=== PATIENT | male | born 1955 | race Two or more races ===

== ENCOUNTER 2018-11-10 02:48 | Emergency (ER) | payer OTHER ==
[~2018-11-10] VITALS: Ht 175.3 cm; Wt 77.1 kg
[~2018-11-10 02:48] MED LIST: ATOR20TA PO; OMEP20CA11 PO
[2018-11-10] MEDS ORDERED: IV NS 0.9% 500 ML BAG IV ONE (03:00)
[2018-11-10] MEDS ORDERED: ONDANSETRON HCL/PF 4 MG/2 ML VIAL IVP ONE (03:00)
[2018-11-10] MEDS ORDERED: KETOROLAC TROMETHAMINE INJ 30 MG/ML VIAL IV ONE (03:00)
[2018-11-10] MEDS ORDERED: MORPHINE SULFATE INJ 2 MG/ML DISP.SYRIN IV ONE (03:00)
--- NOTE | 2018-11-10 03:00 | NUR ---
BIB S/O C/O ABD PAIN WITH NAUSEA/VOMITING, fever and chills SINCE 1500 YESTERDAY, SYNCOPE. S/P DENTAL SURGERY 11/09/18. CURRENTLY AFEBRILE
[2018-11-10] MEDS ORDERED: MORPHINE SULFATE INJ 2 MG/ML DISP.SYRIN ONE (03:03)
[2018-11-10] MEDS ORDERED: KETOROLAC TROMETHAMINE 15 MG/ML VIAL ONE (03:03)
[2018-11-10] MEDS ORDERED: ONDANSETRON HCL/PF 4 MG/2 ML VIAL ONE (03:03)
[2018-11-10 03:16] LABS: BASOPHILS # (AUTO) 0.1 /CMM (0.0-0.2); BASOPHILS % (AUTO) 0.6 % (0.0-2.0); EOSINOPHILS % (AUTO) 0.1 % (0.0-6.0); HEMATOCRIT 45 % (39-51); HEMOGLOBIN 15.2 g/dL (13.5-17.5); LYMPHOCYTES % (AUTO) 15.1 % (20.0-44.0); MEAN CORPUSCULAR HGB CONC 34 g/dl (31.0-36.0); MEAN CORPUSCULAR VOLUME 93 fL (80-96); MONOCYTES # (AUTO) 0.4 /CMM (0.1-1.30); NEUTROPHILS # (AUTO) 10.9 /CMM (1.8-8.9); NEUTROPHILS % (AUTO) 81.2 % (43.0-81.0); PLATELET COUNT (AUTO) 234 /CMM (150-450); RED BLOOD CELL COUNT(AUTO) 4.82 MIL/uL (4.5-6.0); WHITE BLOOD COUNT (AUTO) 13.4 K/uL (4.3-11.0)
[2018-11-10 03:23] LABS: CALCIUM, SERUM 8.9 mg/dL (8.5-10.1); CREATININE 1.1 mg/dL (0.6-1.3); POTASSIUM 3.3 mmol/L (3.5-5.1)
--- NOTE | 2018-11-10 05:17 | NUR ---
IV removed. Catheter intact and site benign. Pressure and 4x4 applied to site. No bleeding noted.Patient discharged to home in stable condition. Rx and Written and verbal after care instructions given. Patient verbalizes understanding of instruction. will provide the transportation.
[2018-11-10 05:18] VITALS: BP 138/88
== END 2018-11-10 05:18 | disposition home or self-care (01) ==
LOC: ER 02:48
DX: G89.18 Other acute postprocedural pain (principal); E78.00 Pure hypercholesterolemia, unspecified; R51 Headache; F12.90 Cannabis use, unspecified, uncomplicated; Z79.899 Other long term (current) drug therapy
CPT/HCPCS: 36415; 70450; 80048; 85025; 85730; 87040 ×2; 96374; 96375; 99284; J1885; J2270; J2405; J7040

== ENCOUNTER 2019-01-12 06:04 | Emergency (ER) | payer OTHER ==
[~2019-01-12] VITALS: Ht 175.3 cm; Wt 74.8 kg
[~2019-01-12 06:04] MED LIST changes: -OMEP20CA11 PO; +OMEP20CA15 PO
[2019-01-12] MEDS ORDERED: KETOROLAC TROMETHAMINE INJ 30 MG/ML VIAL IV ONE (06:30)
[2019-01-12] MEDS ORDERED: ONDANSETRON HCL/PF 4 MG/2 ML VIAL ONE (06:30)
[2019-01-12] MEDS ORDERED: ONDANSETRON HCL/PF 4 MG/2 ML VIAL IVP ONE (06:30)
[2019-01-12] MEDS ORDERED: IV NS 0.9% 1,000 ML BAG IV ONE (06:30)
[2019-01-12] MEDS ORDERED: KETOROLAC TROMETHAMINE 15 MG/ML VIAL ONE (06:30)
[2019-01-12 06:46] LABS: BASOPHILS % (AUTO) 0.2 % (0.0-2.0); HEMATOCRIT 43 % (39-51); HEMOGLOBIN 14.5 g/dL (13.5-17.5); LYMPHOCYTES # (AUTO) 0.5 /CMM (0.8-4.8); LYMPHOCYTES % (AUTO) 5.1 % (20.0-44.0); MEAN CORPUSCULAR HGB CONC 33 g/dl (31.0-36.0); MEAN CORPUSCULAR VOLUME 96 fL (80-96); MONOCYTES # (AUTO) 0.5 /CMM (0.1-1.30); MONOCYTES % (AUTO) 5.9 % (2.0-12.0); NEUTROPHILS # (AUTO) 7.9 /CMM (1.8-8.9); NEUTROPHILS % (AUTO) 88.8 % (43.0-81.0); PLATELET COUNT (AUTO) 175 /CMM (150-450); RED BLOOD CELL COUNT(AUTO) 4.51 MIL/uL (4.5-6.0); WHITE BLOOD COUNT (AUTO) 8.9 K/uL (4.3-11.0)
--- NOTE | 2019-01-12 06:46 | NUR ---
BIBS FROM HOME TO ER BED 10. AAOX4. NO RESP DISTRESS NOTED. AMBULATORY. C/O GEN ABDOMINAL PAIN, NASUEA, VOMMITING, COUGH AND SYNCOPAL EPISODE. PER PT NAUSEA AND VOMMITING STARTED YESTERDAY EVENING AROUND 8PM. WHEN HE WAS GOING TO THE BATHROOM TO VOMMIT PT PASSED OUT AND WAS FOUND BY THE ON THE FLOOR. PT DENIES HITTING HEAD, NO PAIN AND NO NOTED INJURY ON HEAD OR AND PART OF THE BODY, ROM ALSO INTACT. PT ALSO HAS BEEN HAVING NON PRODUCTIVW COUGH. WAS AT BEDSIDE FOR EVAL. ORDERS RECEIVED, NOTED AND CARRIED OUT. IV LINE OBTAINED ON THE R AC 18G. BLOOD DRAWN AND GIVEN TO THERMO CEMENTING FOLDER OPERATOR AT BEDSIDE.
[2019-01-12 06:53] LABS: CALCIUM, SERUM 9.2 mg/dL (8.5-10.1); POTASSIUM 3.7 mmol/L (3.5-5.1)
[2019-01-12 07:01] LABS: ALBUMIN 4.1 g/dL (3.4-5.0); BILIRUBIN,DIRECT 0.2 mg/dL (0.0-0.2); BILIRUBIN,TOTAL 1.1 mg/dL (0.2-1.0); TOTAL PROTEIN, SERUM 7.5 g/dL (6.4-8.2)
--- NOTE | 2019-01-12 07:25 | NUR ---
REPORT RECEIVED FROM JAMES MANLEY FOR YESSENIA
--- NOTE | 2019-01-12 08:15 | NUR ---
PATIENT ABLE TO TOLERATE WATER. MD MADE AWARE
--- NOTE | 2019-01-12 08:20 | NUR ---
IV removed. Catheter intact and site benign. Pressure and 4x4 applied to site. No bleeding noted.Patient discharged to home in stable condition. Written and verbal after care instructions given. Patient verbalizes understanding of instruction.
[2019-01-12 08:26] VITALS: BP 141/87
== END 2019-01-12 08:27 | disposition home or self-care (01) ==
LOC: ER 06:07
DX: R11.10 Vomiting, unspecified (principal); R55 Syncope and collapse; I10 Essential (primary) hypertension; E78.00 Pure hypercholesterolemia, unspecified; F17.200 Nicotine dependence, unspecified, uncomplicated; Z79.899 Other long term (current) drug therapy
CPT/HCPCS: 36415; 70450; 71045; 80048; 80076; 83690; 85025; 96361; 96374; 96375; 99284; J1885; J2405; J7030

== ENCOUNTER 2020-02-21 08:53 | Emergency (ER) | payer OTHER ==
[~2020-02-21] VITALS: Ht 175.3 cm; Wt 77.1 kg
[2020-02-21 09:27] VITALS: BP 156/104
[2020-02-21] MEDS ORDERED: KETOROLAC TROMETHAMINE 15 MG/ML VIAL ONE (09:57)
[2020-02-21] MEDS ORDERED: KETOROLAC TROMETHAMINE INJ 30 MG/ML VIAL IM ONE (10:00)
== END 2020-02-21 10:54 | disposition home or self-care (01) ==
LOC: ER 08:57
DX: M25.571 Pain in right ankle and joints of right foot (principal); I10 Essential (primary) hypertension; E78.00 Pure hypercholesterolemia, unspecified; Z79.899 Other long term (current) drug therapy
CPT/HCPCS: 73610; 96372; 99283; J1885

== ENCOUNTER 2020-06-17 21:03 | Inpatient (IN) | payer OTHER ==
[~2020-06-17] VITALS: Ht 175.3 cm; Wt 73.0 kg
--- NOTE | 2020-06-17 21:10 | NUR ---
BIBRA 40 FROM HOME C/O WEAKNESS AND LETHARGIC, LAST KNOWN WELL 10AM PER FIELD BP 80/40 GIVEN IV BOLUS 200 CC. THE PATIENT IS ALERT AND ORIENTED X3. DENIES PAIN. IN ROOM AIR AND DENIES SOB. RESPIRATION REGULAR AND UNLABORED. WARM BLANKET PROVIDED FOR COMFORT. WILL CONTINUE TO MONITOR THE PATIENT.
[2020-06-17] MEDS ORDERED: IV NS 0.9% 1,000 ML BAG IV ONE ×2 (22:00→23:30)
--- NOTE | 2020-06-17 22:12 | NUR ---
urine collected and sent to the lab
[2020-06-17 22:33] LABS: BASOPHILS # (AUTO) 0.1 /CMM (0.0-0.2); EOSINOPHILS % (AUTO) 0.7 % (0.0-6.0); HEMATOCRIT 39 % (39-51); HEMOGLOBIN 12.1 g/dL (13.5-17.5); LYMPHOCYTES # (AUTO) 1.3 /CMM (0.8-4.8); LYMPHOCYTES % (AUTO) 17.1 % (20.0-44.0); MEAN CORPUSCULAR HGB CONC 31 g/dl (31.0-36.0); MEAN CORPUSCULAR VOLUME 84 fL (80-96); MONOCYTES # (AUTO) 0.3 /CMM (0.1-1.30); NEUTROPHILS # (AUTO) 5.8 /CMM (1.8-8.9); NEUTROPHILS % (AUTO) 77.2 % (43.0-81.0); PLATELET COUNT (AUTO) 293 /CMM (150-450); RED BLOOD CELL COUNT(AUTO) 4.57 MIL/uL (4.5-6.0); WHITE BLOOD COUNT (AUTO) 7.5 K/uL (4.3-11.0)
[2020-06-17 22:34] LABS: BILIRUBIN,URINE NEGATIVE (NEGATIVE); COLOR,URINE YELLOW (YELLOW); LEUKOCYTE ESTERASE ,URINE NEGATIVE (NEGATIVE); NITRITE, URINE NEGATIVE (NEGATIVE); PROTEIN,URINE NEGATIVE (NEGATIVE); UGLUCOSE NEGATIVE (NEGATIVE); UROBILINOGEN,URINE 0.2 EU/dL (0.2)
[2020-06-17 22:40] LABS: RBC,URINE 0-2 /HPF (0-2)
[2020-06-17 22:41] LABS: BACTERIA,URINE None seen /HPF (None Seen); SQUAMOUS EPITHELIAL CELL,UR Few /HPF (None Seen); URINE AMORPHOUS URATE Few /HPF (None Seen); WBC,URINE 0-2 /HPF (0-3)
[2020-06-17 22:41] LABS: CALCIUM, SERUM 8.1 mg/dL (8.5-10.1); CREATININE 0.8 mg/dL (0.6-1.3); POTASSIUM 4.2 mmol/L (3.5-5.1)
[2020-06-17 22:48] LABS: ALBUMIN 3.8 g/dL (3.4-5.0); BILIRUBIN,DIRECT 0.1 mg/dL (0.0-0.2); BILIRUBIN,TOTAL 0.5 mg/dL (0.2-1.0); TOTAL PROTEIN, SERUM 7.2 g/dL (6.4-8.2)
--- NOTE | 2020-06-17 23:21 | NUR ---
COVID SWAB DONE AND SENT TO THE LAB
[2020-06-17] MEDS ORDERED: PIPERACILLIN /TAZOBACTAM 3.375 G VIAL IV ONE (23:28)
[2020-06-17] MEDS ORDERED: VANCOMYCIN 1 GM VIAL ONE (23:28)
[2020-06-17] MEDS ORDERED: VANCOMYCIN 1 GM in IV D5W 250 ML IV ONE (23:30)
[2020-06-17] MEDS ORDERED: PIPERACILLIN /TAZOBACTAM 3.375 G in IV D5W 50 ML IV ONE (23:30)
--- NOTE | 2020-06-17 23:50 | NUR ---
Note chrystalone in ED - 06/17/20 at 2351 by ALISSON PT is medically stable for d/c. IV removed. Catheter intact and site benign. Pressure and 4x4 applied to site. No bleeding noted.Patient discharged to home in stable condition. Written and verbal after care instructions given. Patient verbalizes understanding of instruction.
[2020-06-18] VITALS (7 sets, daily range): BP systolic 107–145; BP diastolic 67–85
[2020-06-18] MEDS ORDERED: MAG HYDROX/AL HYDROX/SIMETH 30 ML UDC PO PRN
[2020-06-18] MEDS ORDERED: ONDANSETRON HCL/PF 4 MG/2 ML VIAL IVP PRN
[2020-06-18] MEDS ORDERED: IV NS 0.9% 1,000 ML IV PRN
[2020-06-18] MEDS ORDERED: Z GUARD REMEDY 2 OZ OINT TP PRN
[2020-06-18] MEDS ORDERED: MAGNESIUM HYDROXIDE 30 ML UDC PO PRN
--- NOTE | 2020-06-18 00:43 | NUR ---
tele [phone]
--- NOTE | 2020-06-18 01:01 | NUR ---
REPORT GIVEN TO YOUSUF ON THIRD FLOOR
--- NOTE | 2020-06-18 01:15 | NUR ---
TELE MONITOR READS ST 120
--- NOTE | 2020-06-18 01:15 | NUR ---
TREE TRIMMING LINE TECHNICIAN ADMITTING NOTE PATIENT BEING ADMITTED TO 312-2 TELE. PATIENT IS AMBULATORY, STEADY. PATIENT ON ROOM AIR TOLERATING AT 96%. SKIN IS INTACT. PATIENT COMPLAINING OF MILD PAIN AT THIS TIME, REFUSING PAIN MEDICATION. PATIENT CURRENTLY NOT EXPERIENCING NAUSEA AND VOMITING. PATIENT IV ACCESS R [id number] G PATENT AND INTACT. ORIENTED PATIENT TO UNIT,ROOM, PRIMARY NURSE, AND MEDICAL AIDES TEACHER. SAFETY MEASURES IN PLACE. WILL MONITOR PATIENT CLOSELY.
--- NOTE | 2020-06-18 01:17 | NUR ---
pt was transferred to the third floor under acls
--- NOTE | 2020-06-18 01:30 | NUR ---
LACTIC ACID 7.9. NOTIFIED MD. ORDERED 1L NS BOLUS. ORDER CARRIED OUT.
[2020-06-18] MEDS: ENOXAPARIN SODIUM 40 MG/0.4 ML DISP.SYRIN SQ SCH ×2 (02:03→20:54)
[2020-06-18] MEDS ORDERED: IV NS 0.9% 1,000 ML IV ONE ×2 (02:30→05:30)
[2020-06-18] MEDS ORDERED: LORAZEPAM 0.5 MG TABLET PO ONE (03:00)
--- NOTE | 2020-06-18 03:17 | NUR ---
PATIENT APPEARS ANXIOUS AND REPORTS ANXIETY. MD ORDERED ATIVAN, ORDER CARRIED OUT.
[2020-06-18] MEDS: IV NS 0.9% 1,000 ML IV PRN ×3 (03:18→22:59)
[2020-06-18 03:29] LABS: BASOPHILS # (AUTO) 0.1 /CMM (0.0-0.2); BASOPHILS % (AUTO) 0.6 % (0.0-2.0); HEMATOCRIT 35 % (39-51); HEMOGLOBIN 10.9 g/dL (13.5-17.5); LYMPHOCYTES # (AUTO) 0.4 /CMM (0.8-4.8); LYMPHOCYTES % (AUTO) 4.3 % (20.0-44.0); MEAN CORPUSCULAR HGB CONC 31 g/dl (31.0-36.0); MEAN CORPUSCULAR VOLUME 86 fL (80-96); MONOCYTES # (AUTO) 0.4 /CMM (0.1-1.30); MONOCYTES % (AUTO) 4.4 % (2.0-12.0); NEUTROPHILS # (AUTO) 8.8 /CMM (1.8-8.9); NEUTROPHILS % (AUTO) 90.7 % (43.0-81.0); PLATELET COUNT (AUTO) 280 /CMM (150-450); RED BLOOD CELL COUNT(AUTO) 4.11 MIL/uL (4.5-6.0); WHITE BLOOD COUNT (AUTO) 9.7 K/uL (4.3-11.0)
[2020-06-18 03:41] LABS: CALCIUM, SERUM 7.3 mg/dL (8.5-10.1); CREATININE 0.9 mg/dL (0.6-1.3); MAGNESIUM 1.7 mg/dL (1.8-2.4); PHOSPHORUS 3.5 mg/dL (2.5-4.9)
[2020-06-18 03:55] LABS: THYROID STIMULATING HORMONE 0.226 uIU/mL (0.358-3.74)
--- NOTE | 2020-06-18 04:00 | NUR ---
LACTIC ACID 7.8. MD ORDERED IV 0.9 NS 200 ML/ HR. AND NPO. ORDER CARRIED OUT.
[2020-06-18] MEDS: ACETAMINOPHEN 325 MG TABLET PO PRN ×2 (04:07→17:23)
--- NOTE | 2020-06-18 04:15 | NUR ---
EMESIS PRESENT, OFFERED ANTIEMETIC, PATIENT REFUSED HE FELT BETTER AFTER VOMITING. ICE CHIPS PROVIDED.
--- NOTE | 2020-06-18 05:00 | NUR ---
IV NS 200 ML/ HR STARTED FOR 7.8 LACTIC ACID. MED NOT SCNANNED D/T MED NOT VERIFIED YET.
[2020-06-18] MEDS ORDERED: PIPERACILLIN /TAZOBACTAM 3.375 G VIAL IV ONE (05:27)
[2020-06-18] MEDS ORDERED: PIPERACILLIN /TAZOBACTAM 3.375 G in IV D5W 50 ML IV SCH ×2 (06:00)
[2020-06-18] MEDS ORDERED: PANTOPRAZOLE 40 MG TABLET.DR PO SCH (07:30)
--- NOTE | 2020-06-18 07:59 | NUR ---
RN CLOSING NOTE PATIENT IN NO ACUTE DISTRESS. SAFETY MEASURES MAINTAINED. ALL ORDERS CARRIED OUT. ENDORSED TO DAY SHIFT NURSE FOR YESSENIA.
--- NOTE | 2020-06-18 08:01 | NUR ---
OPERATOR NOTES Patient is awake, A&Ox4. Denies any nausea or vomiting since last night. Denies pain or discomfort at this time. Currently infusing IVF at 200cc/hr, IV is patent and in place.
[2020-06-18] MEDS ORDERED: CHOL100043 PO (08:02)
[2020-06-18] MEDS ORDERED: AMLO2.5T4 PO (08:02)
[2020-06-18] MEDS ORDERED: FOLI0.4T6 PO (08:02)
[2020-06-18] MEDS ORDERED: OMEG1CAP PO (08:02)
[2020-06-18] MEDS: PANTOPRAZOLE 40 MG TABLET.DR PO SCH (08:22)
[2020-06-18] MEDS: ATORVASTATIN 10 MG TABLET PO SCH (08:22)
--- NOTE | 2020-06-18 08:25 | NUR ---
HIM DIRECTOR NOTES PT SEEN AND EXAMINED BY DR. PAINTING, PLAN OF CARE DISCUSSED WITH PT, VERBALIZED UNDERSTANDING, PER MD, PT OK TO START DIET, NOTED AND CARRIED OUT.
[2020-06-18] MEDS: PIPERACILLIN /TAZOBACTAM 3.375 G in IV D5W 100 ML IV SCH ×2 (09:43→18:08)
[2020-06-18] MEDS: LORAZEPAM 1 MG TABLET PO PRN ×2 (11:40→18:08)
[2020-06-18] MEDS: MULTIVITAMINS,THERAGRAN 1 UDTAB TABLET PO SCH (11:41)
[2020-06-18] MEDS: THIAMINE HCL 100 MG TABLET PO SCH (11:41)
[2020-06-18] MEDS: FOLIC ACID 1 MG TABLET PO SCH (11:41)
[2020-06-18] MEDS: CHLORDIAZEPOXIDE HCL 5 MG CAPSULE PO SCH ×2 (11:41→20:55)
[2020-06-18] MEDS: Magnesium 1GM/D5W 100ML PREMIX 100 ML IV SCH ×2 (13:54→15:43)
--- NOTE | 2020-06-18 16:59 | NUR ---
7TH GRADE TEACHER NOTES RECEIVED NEW ORDER FROM DR. PAINTING TO CONTINUE WITH AMLODIPINE 2.5 MG DAILY, NOTED AND CARRIED OUT.
[2020-06-18] MEDS: AMLODIPINE BESYLATE 2.5 MG TABLET PO SCH (18:08)
--- NOTE | 2020-06-18 18:31 | NUR ---
FURS SALESPERSON NOTES Patient continues to be A&Ox4. VS WNL. Rhythm sinus rhythm/sinus tachy -borderline on the monitor. Patient denies any pain, but verbalizes anxiety and shaking relieved by PRN ATivan. Tolerating IV ABT well- no adverse reactions or side effects. Able to ambulate steady with no assist. Able to tolerate liquids and soups very well. No emesis this shift. Will endorse to next nurse.
--- NOTE | 2020-06-18 19:15 | NUR ---
SOFTWARE SALES OPENING NOTES PATIENT CURRENTLY IN BED USING HIS PHONE, BREATHING EVEN AND UNLABORED. TOLERATING ROOM AIR. IV FLUIDS INFUSING WELL, IV ATB STILL ONGOING. PATIENT DOES NOT REPORT OF ANY PAIN, N/V, DISCOMFORT AT THIS TIME. TELE MONITOR READING SHOWS BORDERLINE ST 102 BPM. SAFETY MEASURES IN PLACE: SIDE RAILS UP, BED IN LOCKED AND LOWEST POSITION, CALL LIGHT WITHIN REACH. WILL MONITOR PATIENT CLOSELY.
[2020-06-19] VITALS: BP 116/67
[2020-06-19] MEDS: PIPERACILLIN /TAZOBACTAM 3.375 G in IV D5W 100 ML IV SCH ×2 (01:56→09:50)
[2020-06-19 04:00] VITALS: BP 134/80
[2020-06-19] MEDS: CHLORDIAZEPOXIDE HCL 5 MG CAPSULE PO SCH (05:02)
[2020-06-19 06:01] LABS: BASOPHILS # (AUTO) 0.1 /CMM (0.0-0.2); BASOPHILS % (AUTO) 0.9 % (0.0-2.0); EOSINOPHILS % (AUTO) 2.5 % (0.0-6.0); HEMATOCRIT 32 % (39-51); HEMOGLOBIN 10.5 g/dL (13.5-17.5); LYMPHOCYTES # (AUTO) 1.1 /CMM (0.8-4.8); MEAN CORPUSCULAR HGB CONC 32 g/dl (31.0-36.0); MEAN CORPUSCULAR VOLUME 83 fL (80-96); MONOCYTES # (AUTO) 0.5 /CMM (0.1-1.30); MONOCYTES % (AUTO) 7.6 % (2.0-12.0); NEUTROPHILS # (AUTO) 4.7 /CMM (1.8-8.9); PLATELET COUNT (AUTO) 274 /CMM (150-450); WHITE BLOOD COUNT (AUTO) 6.5 K/uL (4.3-11.0)
[2020-06-19 06:39] LABS: CALCIUM, SERUM 7.6 mg/dL (8.5-10.1); CREATININE 0.8 mg/dL (0.6-1.3); MAGNESIUM 2.1 mg/dL (1.8-2.4); PHOSPHORUS 1.5 mg/dL (2.5-4.9); POTASSIUM 3.5 mmol/L (3.5-5.1)
--- NOTE | 2020-06-19 07:56 | NUR ---
SECOND STEWARD CLOSING NOTE PATIENT IS IN BED RESTING, EASILY AROUSED. NO COMPLAINS OF PAIN OR DISCOMFORT. PATIENT WAS CALM THROUGH THE SHIFT NO ANXIETY REPORTED. PATIENT'S IV FLUIDS INFUSING WELL. IV PATENT AND INTACT. BREATHING EVEN AND UNLABORED. ALL NEEDS MET AND ATTENDED. ATB THERAPY CARRIED OUT. ENDORSED TO DAY SHIFT NURSE FOR YESSENIA.
[2020-06-19 08:00] VITALS: BP 150/87
--- NOTE | 2020-06-19 08:20 | NUR ---
PHYSICIAN COMPENSATION ANALYST OPENING NOTE Patient is A&Ox4. Sleeping at this time but wakes to voice and touch. Patient reports no pain, anxiety, or nausea at this time. Patient reports he has no needs at this time. Will continue to monitor.
[2020-06-19 08:31] VITALS: BP 150/87
[2020-06-19] MEDS: FOLIC ACID 1 MG TABLET PO SCH (08:31)
[2020-06-19] MEDS: PANTOPRAZOLE 40 MG TABLET.DR PO SCH (08:31)
[2020-06-19] MEDS: THIAMINE HCL 100 MG TABLET PO SCH (08:31)
[2020-06-19] MEDS: MULTIVITAMINS,THERAGRAN 1 UDTAB TABLET PO SCH (08:31)
[2020-06-19] MEDS: AMLODIPINE BESYLATE 2.5 MG TABLET PO SCH (08:31)
[2020-06-19] MEDS: ATORVASTATIN 10 MG TABLET PO SCH (08:31)
[2020-06-19] MEDS ORDERED: K PHOS NEUTRAL 250 MG TABLET PO ONE (11:00)
[2020-06-19] MEDS ORDERED: Thiamine HCL PO (11:03)
[2020-06-19] MEDS ORDERED: MULT-24 PO (11:03)
[2020-06-19] MEDS ORDERED: Folic Acid PO (11:03)
[2020-06-19] MEDS ORDERED: LORA-258 PO (11:03)
--- NOTE | 2020-06-19 12:47 | NUR ---
GEAR INSPECTORCOSMETIC CHEMIST NOTE Patient is in stable condition upon discharge at 1215. No c/o pain, discomfort, tremors, or anxiety. Educated on new orders, discharge instructions, diagnosis education. Vital signs stable prior to d/c. Patient overall states he feels much better. IV removed, wrist bands removed. Nurse assisted patient to private car. Discharge to home with .
--- NOTE | 2020-06-19 17:41 | NUR ---
Patient contacted hospital stating that chosen pharmacy was unable to fill prescription for Ativan because of issue with Rx note. Pharmacy contacted. Dr. Flannery contacted. Issue was clarified that the pharmacy's system needed to be updated -system was updated and issue was resolved letting them dispense medication to patient. Patient was then able to go to the pharmacy at 1730 and picking machine operator his prescription with no issue.
== END 2020-06-19 12:10 | disposition home or self-care (01) | DRG 422 ==
LOC: ER 21:04 → TELE 06-18 00:47 → MED 06-19 10:49
PROVIDERS: ADMIT Registered Nurse; ATTEND Internal Medicine
DX: E86.0 Dehydration (principal); G92 Toxic encephalopathy; E87.2 Acidosis; E78.00 Pure hypercholesterolemia, unspecified; I10 Essential (primary) hypertension; K21.9 Gastro-esophageal reflux disease without esophagitis; Z20.822 Contact with and (suspected) exposure to COVID-19; E78.5 Hyperlipidemia, unspecified; F12.90 Cannabis use, unspecified, uncomplicated; Z79.899 Other long term (current) drug therapy; F19.10 Other psychoactive substance abuse, uncomplicated
CPT/HCPCS: 36415; 70450-TC; 71045-TC; 80048-TC; 80061-TC; 80076-TC; 81001; 82962-TC; 83605-TC; 83690-TC; 83735-TC; 84100-TC; 84443-TC; 84484-TC; 85025-TC; 85730-TC; 87040-TC; 87081-TC; 87086-TC; 97112-TC; 97116-TC; 97530-TC; C9803; G0378; J1650; J2405; J2543; J3370; J3475; J7030; J7050; J7060